=== PATIENT | female | born 1980 | race Caucasian/White ===

== ENCOUNTER 2019-10-20 15:13 | Emergency (ER) | payer MEDICAID ==
[~2019-10-20] VITALS: Ht 154.9 cm; Wt 59.0 kg
[2019-10-20 15:21] VITALS: Ht 154.9 cm; Wt 59.0 kg
[2019-10-20 16:01] LABS: microscopic required? NO
[2019-10-20 16:04] LABS: BASOPHIL % 0.7 % (0-2); PLATELET COUNT 342 x10^3mcL (130-400)
[2019-10-20 16:05] LABS: RED CELL DISTRIBUTION WIDTH 20.4 % (11.5-14.5)
[2019-10-20 16:06] LABS: CALCIUM 8.5 mg/dL (8.5-10.1); CARBON DIOXIDE 25.8 mmol/L (21-32); CHLORIDE SERUM 98 mmol/L (98-107); CREATININE SERUM 0.8 mg/dL (0.6-1.0); GFR1 > 60 mL/min; GLUCOSE SERUM 257 mg/dL (74-106); POTASSIUM SERUM 3.6 mmol/L (3.5-5.1); SODIUM SERUM 134 mmol/L (136-145)
[2019-10-20 16:11] LABS: urine erythrocyte NEGATIVE (NEGATIVE)
[2019-10-20 16:14] LABS: IRON 12 ug/dL (50-170); TOTAL IRON BINDING CAPACITY 476 ug/dL (250-450)
[2019-10-20 16:18] LABS: ALBUMIN 3.5 g/dL (3.4-5.0); ALKALINE PHOSPHATASE 135 U/L (46-116); ALT/SGPT 22 U/L (14-59); AST/SGOT 15 U/L (15-37); BILIRUBIN TOTAL 0.6 mg/dL (0.20-1.00); HDL CHOLESTEROL 39 mg/dL (40-60); LIPASE 149 IU/L (73-393); T4(THYROXINE) 5.3 ug/dL (4.7-13.3); TOTAL PROTEIN, SERUM 7.6 g/dL (6.4-8.2)
[2019-10-20 16:19] LABS: CHOLESTEROL 132 mg/dL (<200)
[2019-10-20 16:21] LABS: AMPHETAMINE QUAL UR NONE DETECTED (See below)
[2019-10-20 16:25] LABS: rbc morphology (normal/abnorm) ABNORMAL (NORMAL)
[2019-10-20 16:26] LABS: ovalocyte/elliptocyte 1+
[2019-10-20 17:39] VITALS: BP 118/74
== END 2019-10-20 17:39 | disposition home or self-care (01) ==
LOC: ED 15:13
PROVIDERS: Emergency Medicine
DX: N92.1 Excessive and frequent menstruation with irregular cycle (principal); E11.9 Type 2 diabetes mellitus without complications; F17.210 Nicotine dependence, cigarettes, uncomplicated; I10 Essential (primary) hypertension; Z71.6 Tobacco abuse counseling; Z86.2 Personal history of diseases of the blood and blood-forming organs and certain disorders involving the immune mechanism
CPT/HCPCS: 36415; 82962; 99406